=== PATIENT | male | born 1955 | race Caucasian/White ===

== ENCOUNTER 2021-04-11 09:45 | Day surgery (SDC) | payer OTHER ==
[~2021-04-11] VITALS: Ht 182.9 cm; Wt 103.4 kg
[2021-04-11] MEDS ORDERED: BACTRIM DS 8001 TAB PO (10:13)
[2021-04-11] MEDS ORDERED: FLAGYL500 MG PO (10:16)
[2021-04-11] MEDS ORDERED: SMZ/TMPDS PO (10:17)
[2021-04-11] MEDS ORDERED: ZESTRIL30 MG PO (10:19)
[2021-04-11 10:30] VITALS: BP 145/82; PULSE 93; TEMP 98.1
[2021-04-11 11:10] VITALS: BP 133/81; PULSE 88; TEMP 97.1
--- NOTE | 2021-04-11 11:10 | NUR ---
The patient arrived back to [facility] from the endoscopy suite at this time. The patient appears alert and oriented and denies any pain or nausea at this time. Post procedure vital signs were started. The patient's is at his bedside. The patient agrees to try some applesauce and water. Call light is within reach. Will continue to monitor the patient.
[2021-04-11 11:25] VITALS: BP 128/88; PULSE 75
--- NOTE | 2021-04-11 11:25 | NUR ---
The patient appears to be tolerating the food and drink well. The patient's vital signs appear stable. The patient's remains at his bedside and his call light is within reach. The patient is waiting to discuss the findings of the procedure with Dr. Martinez prior to dicharge.
[2021-04-11 11:40] VITALS: BP 148/80; PULSE 78
--- NOTE | 2021-04-11 11:40 | NUR ---
The patient appears to have tolerated the food and drink well. The patient's vital signs appear stable. Call light is within reach. Will continue to monitor the patient.
[2021-04-11 11:54] VITALS: BP 148/87; PULSE 78
--- NOTE | 2021-04-11 11:54 | NUR ---
The patient voices a desire to be discharged home after speaking with Dr. Martinez.
--- NOTE | 2021-04-11 12:01 | NUR ---
Dr. Martinez is at the patient's bedside talking with him and his regarding the findings of the procedure.
--- NOTE | 2021-04-11 12:20 | NUR ---
Discharge instructions were reviewed with the patient and his at this time. They both verbalized understanding and have no questions for the nurse at this time. The patient's IV to his right hand was removed and a pressure dressing was applied to the site. The nurse instructed the patient to get dressed and notify the staff when he is ready to be escorted out.
--- NOTE | 2021-04-11 12:35 | NUR ---
The patient was escorted out via wheelchair to a private vehicle by JEREMIE Peter. The patient's belongings and discharge paperwork were sent with him. The patient's is present to drive him home.
== END 2021-04-11 12:35 | disposition home or self-care (01) ==
LOC: SDCO 09:45
DX: K29.50 Unspecified chronic gastritis without bleeding (principal); B96.81 Helicobacter pylori [H. pylori] as the cause of diseases classified elsewhere; Q40.2 Other specified congenital malformations of stomach; K22.4 Dyskinesia of esophagus; K21.9 Gastro-esophageal reflux disease without esophagitis; K76.0 Fatty (change of) liver, not elsewhere classified; K52.9 Noninfective gastroenteritis and colitis, unspecified; K57.92 Diverticulitis of intestine, part unspecified, without perforation or abscess without bleeding; I10 Essential (primary) hypertension; D64.9 Anemia, unspecified; G47.00 Insomnia, unspecified; J30.9 Allergic rhinitis, unspecified; R79.89 Other specified abnormal findings of blood chemistry; Z79.899 Other long term (current) drug therapy; Z87.891 Personal history of nicotine dependence
CPT/HCPCS: J2704; J7030